=== PATIENT | male | born 1975 | race Two or more races ===

== ENCOUNTER 2024-11-05 12:08 | Outpatient (CLI) | payer OTHER | END 2024-11-05 12:10 | disposition home or self-care (01) | LOC: SONOGRAMA 12:08 | PROVIDERS: ATTEND Pathology Anatomic Pathology & Clinical Pathology | DX: D34 Benign neoplasm of thyroid gland (principal); L04.0 Acute lymphadenitis of face, head and neck; E07.89 Other specified disorders of thyroid; E04.1 Nontoxic single thyroid nodule ==